=== PATIENT | male | born 1995 | race Caucasian/White ===

== ENCOUNTER 2025-03-29 21:38 | Emergency (ER) | payer OTHER, SELFPAY ==
--- NOTE | ~2025-03-29 | CT_ITS ---
CT cervical spine wo con Ordering provider: Parisa Saha PA-C History: . hi . Comparison: None. Technique: CT of the cervical spine was performed without contrast. Sagittal and coronal reformatted images were also obtained and reviewed. Automated exposure control and iterative reconstruction do hnique were employed. The dose-length product was 401.26 mGy-cm. FINDINGS: VERTEBRAE: No subluxation or acute fracture. The occipital condyles are intact. DISC SPACES: Normal. Narrowing of the left bilateral narrowing of the foramina at the level of C4-C5. Foramina at the leve l of C3-C4. PARASPINOUS SOFT TISSUES: Normal. IMPRESSION: No acute osseous abnormality cervical spine. Reviewed, dictated and finalized at location A.
--- NOTE | ~2025-03-29 | CT_ITS ---
CT brain wo con Ordering provider: Parisa Saha PA-C History: 29 years Male with . hi, ams . Comparison: None. Technique: CT of the head without contrast. Radiation reduction technique utilized.The dose-length pr oduct was 681 mGy-cm. FINDINGS: BRAIN PARENCHYMA AND CSF SPACES: No midline shift, mass effect or hemorrhage. The brain parenchyma a nd CSF spaces are otherwise normal. VISUALIZED PARANASAL SINUSES: Well aerated. MASTOIDS: Well aerated. BONES: The bones appear intact. SOFT TISSUES: Visualized nasopharynx is normal. Superficial soft tissues are normal. IMPRESSION: No acute intracranial findings. Reviewed, dictated and finalized at location A.
[2025-03-29 21:51] VITALS: BP 144/91; PULSE 80; RESP 12; O2SAT 96
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
--- OUTSIDE RECORDS SUMMARY | 2025-03-29 22:13 | XMS_ITS | Encounter Summary ---
Author Organization [facility] Facility Care Team Providers Care Amf Mechanic Name Role Phone Yaya Mantilla MD Primary Care Provider [phone] Unknown, Notinfile Primary Care Provider Unavail able Hermilo Galo MD Primary Care Provider [phone] Encounter Details Date Type Department Care Team (Latest Contact Info) Description 11/11/2017 Orders Only [facility] ProviderGary MD [address] [place], [place] [id number] Social History Tobacco Use Types Packs/Day Years Used Date Smoking Tobacco: Never Assessed Sex and Gender Information Value Date Recorded Sex Assigned at Not on file 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 us Historical Provider Final Res ult documented in this encounter Visit Diagnoses Not on filedocumented in this encounter Additional Health Concerns Infection Onset Date Last Indicated Resolved Time COVID: Suspected 12/01/2023 12/01/2023 12/01/2023 7:08 AM LINE MANAGER Influenza, adult 12/01/2023 12/01/2023 12/08/2023 3:07 AM LINE MANAGER documented as of this encounter Care Teams Amf Mechanic Relationship Specialty Start Date End Date Yaya Mantilla MD PCP - General 10/28/20 10/28/20 Unknown, Notinfile PCP - General 01/30/22 03/05/22 Hermilo Galo MD PCP - General Family Medicine 03/06/22 documented as of this encounter
--- OUTSIDE RECORDS SUMMARY | 2025-03-29 22:13 | XMS_ITS | Encounter Summary ---
Author Organization [facility] Facility Care Team Providers Care Plant Maintenance Mechanic Name Role Phone Yaya Mantilla MD Primary Care Provider [phone] Unknown, Notinfile Primary Care Provider Unavail able Hermilo Galo MD Primary Care Provider [phone] Encounter Details Date Type Department Care Team (Latest Contact Info) Description 11/12/2017 Orders Only [facility]INCON[facility] ProviderGary MD [address] [place], [place] [id number] Social History Tobacco Use Types Packs/Day Years Used Date Smoking Tobacco: Never Assessed Sex and Gender Information Value Date Recorded Sex Assigned at Not on file 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 us Historical Provider Final Res ult documented in this encounter Visit Diagnoses Not on filedocumented in this encounter Additional Health Concerns Infection Onset Date Last Indicated Resolved Time COVID: Suspected 12/01/2023 12/01/2023 12/01/2023 7:08 AM BUSINESS ANALYST CONSULTANT Influenza, adult 12/01/2023 12/01/2023 12/08/2023 3:07 AM BUSINESS ANALYST CONSULTANT documented as of this encounter Care Teams Plant Maintenance Mechanic Relationship Specialty Start Date End Date Yaya Mantilla MD PCP - General 10/28/20 10/28/20 Unknown, Notinfile PCP - General 01/30/22 03/05/22 Hermilo Galo MD PCP - General Family Medicine 03/06/22 documented as of this encounter
--- OUTSIDE RECORDS SUMMARY | 2025-03-29 22:13 | XMS_ITS | Referral Summary ---
Author Organization [facility] Address [address] [place] [address] Care Team Providers Care Medical Collections Specialist Name Role Phone Hermilo Galo MD Primary Care Provider [phone] Allergies No known active allergies Medications loxaquma-tpjg-n in-folic acid 18-0.4 mg tablet Take by mouth Active yl-3-odz-epa-fi sh oil-vit D3 300-1,000-1,000 mg-mg-unit capsule Take by mouth Active valACYclovir (VALTREX) 1 gram tabletIndicatio ns:Fever blister Take 2 tabs (2000 mg) 2 times a days for 1 day. 4 tablet 5 3 Active lidocaine viscous (XYLOCAINE) 2 % solutionIndicat ions:Mouth Irritation Apply 2 mL to the mouth or throat 3 (three) times a day as needed (for mouth/dental pain) 30 mL 4 Active Additional Information Patient not taking.Reported on 07/26/2024 ibuprofen (ADVIL,MOTRIN) 800 mg tablet Take 1 tablet (800 mg total) by mouth 3 (three) times a day 21 tablet 4 Active Additional Information Patient not taking.Reported on 07/26/2024 Active Problems Problem Noted Date Diagnosed Date Postconcussion syndrome 06/23/2023 Immunizations Immunization Administration Dates Next Due DTP 03/02/2002,03/14/1998 DTP / HiB 02/14/1997,1996,1996 DTaP 03/05/2017 Hep B, Adolescent or Pediatric 03/14/1998,1995,1996 HiB 03/14/1998 IPV 03/02/2002 Influenza, Unspecified 07/26/2024(Deferr ed: Patient decision),07/02/2023(Deferred: Patient decision),07/02/2022(Deferred: Patient decision) MMR 03/02/2002,11/16/1997 OPV 03/14/1998,02/14/1997,1996 ,1996 Tdap 03/05/2017 Varicella 11/16/1997 Social History Tobacco Use Types Packs/Day Years Used Date Smoking Tobacco: Never Smokeless Tobacco: Never Tobacco Cessation:Counseling Given: Not Answered AUDIT-C Answer Date Recorded Q1: How often do you have a drink containing alcohol? Never 07/26/2024 Q2: How many drinks containi ng alcohol do you have on a typical day when you are drinking? Patient does not drink Q3: How often do you have si x or more drinks on one occasion? Never 07/26/2024 PHQ-2 Answer Date Recorded PHQ-2 Total Score (If total score is 3 or more points, staff should administer the PHQ-9) 0 07/26/2024 PHQ-9 Answer Date Recorded PHQ-9 Total Score 0 07/26/2024 Personal Safety Answer Date Recorded Have you ever been in or are you currently in a harmful physical or emotional relationship or is someone making you feel afraid or unsafe? Denies 12/01/2023 Sex and Gender Information Value Date Recorded Sex Assigned at Not on file Legal Sex Male 6:22 PM HEAD DOFFER Gender Identity Not on file Sexual Orientation Not on file Last Filed Vital Signs Vital Sign Reading Time Taken Comments Blood Pressure 105/69 07/26/2024 10:58 AM CDT Pulse 102 07/26/2024 10:58 AM CDT Temperature 36.8 C (98.2 F) 07/26/2024 10:58 AM CDT Respiratory Rate 18 07/26/2024 10:5 8 AM CDT Oxygen Saturation 98% 07/26/2024 10: 58 AM CDT Inhaled Oxygen Concentration - - Weight 102.8 kg (226 lb 9.6 oz) 024 10:58 AM CDT Height 185.4 cm (6' 1) 07/26/2024 10:5 8 AM CDT Body Mass Index 29.9 07/26/2024 10:58 AM CDT Plan of Treatment Not on file Procedures Procedure Name Priority Date/Time Associated Diagnosis Comments HEPATITIS PANEL, ACUTE Routine 07/26/2024 12:05 PM CDT Encounter for annual health examination from Last 3 Months or Most Recently Relevant to Health Maintenance Results * Hepatitis panel, acute Blood (07/26/2024 12:05 PM CDT) Hep A IgM Nonreactive Nonreactive Comment: Interpretive Data: If Hep A IgM Ab is reported as Equivocal, a new sample should be drawn in two weeks for testing. Current interpretive data was last revised on 20. Hep B core IgM Nonreactive Nonreactive МАРИЯ Comment: Interpretive Data If HepB Core IgM Ab is reported as Equivocal, a new sample should be drawn in two weeks for testing. Current interpretive data was last revised on 20. Hep C Ab Nonreactive Nonreactive МАРИЯ Comment: Antibodies to HCV not detected. Does NOT exclude the possibility of recent exposure to HCV. Current interpretive data was last revised on 22 Interpretive Data Nonreactive: Antibodies to HCV not detected. Does NOT exclude the possibility of recent exposure to HCV. Equivocal: Equivocal for HCV antibodies. Supplemental molecular testing will be automatically performed to determine infection status in accordance with current CDC screening recommendations. Reactive: Positive for HCV antibodies. This may represent current or past HCV infection. Supplemental molecular testing will be automatically performed to determine current infection status in accordance with current CDC screening recommendations. Interpretive data was last revised on 2020. HepBsAg Nonreactive Nonreactive МАРИЯ Blood 07/26/2024 12:0 5 PM CDT 07/26/2024 1:40 PM CDT us Hermilo Galo MD LAB MICROBIOLOGY - GENERAL ORDER ÁNGEL Final Result МАРИЯ [address] [facility] Department [place] [address] from Last 3 Months or Most Recently Relevant to Health Maintenance Insurance [facility] CHOICE PLUS [facility] H[facility]/PPO Address: [place] [address] [facility] [place] [address] [place] [address] WORKERS COMPENSATION GENERIC WORKERS COMPENSATION GENERIC Care Teams Medical Collections Specialist Relationship Specialty Start Date End Date Hermilo Galo MD PCP - General Family Medicine 03/06/22
--- OUTSIDE RECORDS SUMMARY | 2025-03-29 22:13 | XMS_ITS | Clinical Summary ---
Author Organization [facility] Address [address] [place] [address] Care Team Providers Care Barrel Scraper Name Role Phone Hermilo Galo MD Primary Care Provider [phone] Allergies No known active allergies Medications qmzwkylc-nzqz-u in-folic acid 18-0.4 mg tablet Take by mouth Active xs-3-xty-epa-fi sh oil-vit D3 300-1,000-1,000 mg-mg-unit capsule Take [...] OPV 03/14/1998,02/14/1997,1996 ,1996 Tdap 03/05/2017 Varicella 11/16/1997 Surgical History Surgery Date Site/Laterality Comments KNEE RECONSTRUCTION, MEDIAL PATELLAR FEMORAL LIGAMENT 11/01/2017 - 10/31/2018 Medical History Medical History Date Comments Asthma 2006 pt states is not an issue anymore. 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 Gender Identity Not on file Sexual Orientation Not on file Obstetrics History Last Filed Vital Signs Vital Sign Reading [...] 07/26/2024 10:58 AM CDT Plan of Treatment Health Maintenance Due Date Last Done Comments Varicella Vaccines (2 of 2 - 2-dose childhood series) 2000 11/16/1997 Influenza Vaccine (Season Ended) 2025 Depression Screening 07/26/2025 07/26/2024, 07/26/2024, 06/23/2023, Additional history exists Regular Well Visit/Exam 18-64 07/26/2025 07/26/2024, 03/06/2022 DTaP/Tdap/Td Vaccine (8 - Td or Tdap) 03/05/2027 03/05/2017, 03/05/2017, 03/02/2002, Additional history exists Hepatitis B Screening Completed 03/14/1998 , 1996, 1996 Hepatitis C Screening Completed 07/26/2024 HPV Vaccines Aged Out No longer eligi ble based on patient's age to complete this topic Pneumococcal vaccine <65 Aged Out No longer eligible based on patient's age to complete this topic Procedures Procedure Name Priority Date/Time Associated Diagnosis [...] Hep B core IgM Nonreactive Nonreactive МАРИЯ GUTIÉRREZ Comment: Interpretive Data If HepB Core IgM [...] 5 PM CDT 07/26/2024 1:40 PM CDT Hermilo Galo MD LAB MICROBIOLOGY - GENERAL ORDER ÁNGEL Final Result Performing Organization Address City/State/[facility] Co de Phone Number [facility] [address] [facility] Department [place] [address] from Last 3 Months or Most Recently Relevant to Health Maintenance [place] [address] [place] [address] CHOICE PLUS WORKERS COMPENSATION GENERIC Care Teams Barrel Scraper Relationship Specialty Start Date End Date Hermilo Galo MD PCP - General Family Medicine 03/06/22
[2025-03-29] MEDS: ACETAMINOPHEN 500 MG TABLET 1000 MG PO (22:32)
[2025-03-29 23:57] VITALS: BP 118/71; PULSE 65; RESP 18; O2SAT 99
--- NOTE | 2025-03-30 00:56 | PC.NURSE ---
C-Collar removed per Dr Bautista
[2025-03-30 01:20] VITALS: BP 144/79; PULSE 60; RESP 19; O2SAT 100
== END 2025-03-30 01:20 | disposition home or self-care (01) ==
PROVIDERS: Emergency Provider Student in an Organized Health Care Education/Training Program; PCP Family Medicine
DX: S06.0X0A Concussion without loss of consciousness, initial encounter (principal); W51.XXXA Accidental striking against or bumped into by another person, initial encounter; Y93.62 Activity, american flag or touch football
CPT/HCPCS: 70450; 72125; 99284; A9270; L0140